=== PATIENT | female | born 1945 | race Two or more races ===

== ENCOUNTER 2016-10-01 20:33 | Inpatient (IN) | payer MEDICAID ==
[~2016-10-01] VITALS: Ht 167.6 cm; Wt 69.5 kg
[~2016-10-01 20:33] MED LIST: CALC650T4 PO; CARB200T6 PO; FAMO-136 PO; NIAC500T76 PO; OLAN5TAB2 PO; ROSU20 PO
[2016-10-01] MEDS ORDERED: FAMO20 PO (20:45)
[2016-10-01] MEDS ORDERED: DSS100 PO (20:45)
[2016-10-01] MEDS ORDERED: RISP1 PO (20:45)
[2016-10-01] MEDS ORDERED: OLAN10TA3 PO (20:45)
[2016-10-01] MEDS ORDERED: HYDR25 PO (20:45)
[2016-10-01] MEDS ORDERED: ARIP5TAB9 PO (20:45)
[2016-10-01] MEDS ORDERED: ASPI-556 PO (20:45)
[2016-10-01] MEDS ORDERED: MULT1CAP32 PO (20:45)
[2016-10-01] MEDS ORDERED: ROSU10 PO (20:45)
[2016-10-01] MEDS ORDERED: OMEG1CAP12 PO (20:45)
[2016-10-01] MEDS ORDERED: DIVA250T25 PO (20:45)
[2016-10-01 21:15] LABS: BASOPHILS % (AUTO) 0.1 % (0.0-2.0); EOSINOPHILS % (AUTO) 0.5 % (1.0-6.0); HEMATOCRIT 35.6 % (36-46); HEMOGLOBIN 11.2 g/dL (12.0-16.0); LYMPHOCYTES # (AUTO) 0.9 K/uL (1.0-4.8); LYMPHOCYTES % (AUTO) 8.4 % (22.0-44.0); MEAN CORPUSCULAR HGB CONC 31.5 G/dL (31.0-37.0); MEAN CORPUSCULAR VOLUME 89 fL (80-100); MONOCYTES # (AUTO) 0.5 K/uL (0.1-1.0); MONOCYTES % (AUTO) 4.3 % (2.0-9.0); NEUTROPHILS # (AUTO) 9.3 K/uL (1.8-7.7); NEUTROPHILS % (AUTO) 86.7 % (40.0-70.0); PLATELET COUNT (AUTO) 239 K/uL (150-450); RED BLOOD CELL COUNT(AUTO) 4.01 MIL/uL (4.00-5.20); RED CELL DISTRIBUTION WIDTH 16.6 % (11.5-14.5); WHITE BLOOD COUNT (AUTO) 10.7 K/uL (4.5-11.0)
[2016-10-01] MEDS ORDERED: SODIUM CHLORIDE 0.9% 1,000 ML IV ONE (21:15)
[2016-10-01 21:26] LABS: ALANINE AMINOTRANSFERASE 24 U/L (12-78); ALBUMIN 3.1 g/dL (3.4-5.0); ANION GAP 7 mmol/L (8-16); ASPARTATE AMINOTRANSFERASE 13 U/L (15-37); BILIRUBIN,TOTAL 0.2 mg/dL (0.1-1.0); CALCIUM, TOTAL 9.6 mg/dL (8.8-10.5); CARBON DIOXIDE 30 mmol/L (22-29); CHLORIDE 103 mmol/L (98-107); CREATININE 0.89 mg/dL (0.60-1.30); GLOMERULAR FILTR. RATE CALC > 60 mL/min (>60); SODIUM SERUM 140 mmol/L (136-145); TOTAL PROTEIN, SERUM 6.4 g/dL (6.4-8.2); UREA NITROGEN, BLOOD 22 mg/dL (7-18)
[2016-10-01 21:27] LABS: POTASSIUM 2.9 mmol/L (3.5-5.1)
[2016-10-01] MEDS: POTASSIUM CHLORIDE 20 MEQ ER TABLET PO ONE ×2 (21:40→21:46)
[2016-10-01 21:47] LABS: GLUCOSE,POINT OF CARE 96 MG/DL (70-110)
[2016-10-01] MEDS ORDERED: BARIUM SULFATE 0.1% SUSPENSION 450 ML BOTTLE PO ONE (22:15)
[2016-10-01] MEDS ORDERED: SODIUM CHLORIDE 0.9% 100 ML ONE (22:29)
[2016-10-01] MEDS ORDERED: IOVERSOL 350 MG/ML 100 ML VIAL ONE (22:29)
[2016-10-02] MEDS ORDERED: PEG 3350/NA SULF,BICARB,CL/KCL 4000 ML SOLUTION PO ONE (02:00)
[2016-10-02] MEDS ORDERED: ACETAMINOPHEN 325 MG TABLET PO PRN (02:45)
[2016-10-02] MEDS ORDERED: 0.9% SODIUM CHLORIDE 10 ML SYRINGE IVP PRN (02:45)
[2016-10-02] MEDS ORDERED: ONDANSETRON HCL 4 MG/2 ML VIAL IVP PRN ×2 (02:45→06:15)
[2016-10-02 03:12] VITALS: BP 102/74
[2016-10-02] MEDS ORDERED: CALC-776 PO (03:46)
[2016-10-02] MEDS ORDERED: POTASSIUM CHLORIDE 20 MEQ ER TABLET PO PRN (06:15)
[2016-10-02] MEDS: SODIUM CHLORIDE 0.45% 1,000 ML IV SCH (06:27)
[2016-10-02 07:10] VITALS: BP 120/69
[2016-10-02 07:33] LABS: ANION GAP 10 mmol/L (8-16); CALCIUM, TOTAL 9.5 mg/dL (8.8-10.5); CARBON DIOXIDE 27 mmol/L (22-29); CHLORIDE 102 mmol/L (98-107); CREATININE 0.86 mg/dL (0.60-1.30); GLOMERULAR FILTR. RATE CALC > 60 mL/min (>60); POTASSIUM 3.3 mmol/L (3.5-5.1); SODIUM SERUM 139 mmol/L (136-145); UREA NITROGEN, BLOOD 21 mg/dL (7-18)
[2016-10-02] MEDS: POTASSIUM CHLORIDE 20 MEQ ER TABLET PO PRN (08:27)
[2016-10-02] MEDS: DOCUSATE SODIUM 100 MG CAPSULE PO SCH ×2 (08:27→09:00)
[2016-10-02] MEDS: FAMOTIDINE 20 MG TABLET PO SCH (08:27)
[2016-10-02] MEDS: FISH OIL/OMEGA-3 FATTY ACIDS 500 MG CAPSULE PO SCH ×2 (08:28→20:19)
[2016-10-02] MEDS: RisperiDONE 1 MG TABLET PO SCH ×2 (08:28→20:20)
[2016-10-02] MEDS: ASPIRIN 81 MG EC TABLET PO SCH (08:28)
[2016-10-02] MEDS: MULTIVITAMINS, THERAPEUTIC TABLET PO SCH (08:28)
[2016-10-02] MEDS: CALCIUM OYSTER SHELL 250 MG-VIT D3 125 UNITS TABLET PO SCH ×2 (08:29→20:19)
[2016-10-02] MEDS: ARIPiprazole 5 MG TABLET PO SCH ×2 (08:29→20:19)
[2016-10-02] MEDS: DIVALPROEX SODIUM 250 MG DR TABLET PO SCH ×3 (08:29→20:19)
[2016-10-02] MEDS: HydrALAZINE HCL 25 MG TABLET PO SCH ×2 (08:29→20:19)
[2016-10-02 11:03] VITALS: BP 95/57
[2016-10-02 15:03] VITALS: BP 92/5
[2016-10-02 19:36] VITALS: BP 98/66
[2016-10-02] MEDS: ROSUVASTATIN CALCIUM 10 MG TABLET PO SCH (20:19)
[2016-10-02] MEDS: OLANZapine 10 MG TABLET PO SCH (20:20)
[2016-10-02 23:09] VITALS: BP 137/46
[2016-10-03] MEDS ORDERED: POTASSIUM CHL 10 MEQ/WATER 50 ML IV PRN
[2016-10-03] MEDS: POTASSIUM CHL 10 MEQ/WATER 50 ML IV PRN ×4 (00:15→04:26)
[2016-10-03 03:46] VITALS: BP 98/67
[2016-10-03] MEDS: MULTIVITAMINS, THERAPEUTIC TABLET PO SCH (06:30)
[2016-10-03 08:05] LABS: BASOPHILS % (AUTO) 0.6 % (0.0-2.0); EOSINOPHILS % (AUTO) 1.7 % (1.0-6.0); HEMATOCRIT 31.2 % (36-46); HEMOGLOBIN 9.9 g/dL (12.0-16.0); LYMPHOCYTES # (AUTO) 1.2 K/uL (1.0-4.8); LYMPHOCYTES % (AUTO) 15.3 % (22.0-44.0); MEAN CORPUSCULAR HGB CONC 31.6 G/dL (31.0-37.0); MEAN CORPUSCULAR VOLUME 89 fL (80-100); MONOCYTES # (AUTO) 0.3 K/uL (0.1-1.0); MONOCYTES % (AUTO) 4.2 % (2.0-9.0); NEUTROPHILS # (AUTO) 6.1 K/uL (1.8-7.7); NEUTROPHILS % (AUTO) 78.2 % (40.0-70.0); PLATELET COUNT (AUTO) 228 K/uL (150-450); RED BLOOD CELL COUNT(AUTO) 3.53 MIL/uL (4.00-5.20); RED CELL DISTRIBUTION WIDTH 16.4 % (11.5-14.5); WHITE BLOOD COUNT (AUTO) 7.8 K/uL (4.5-11.0)
[2016-10-03 08:17] VITALS: BP 99/52
[2016-10-03 08:27] LABS: ANION GAP 7 mmol/L (8-16); CALCIUM, TOTAL 8.8 mg/dL (8.8-10.5); CARBON DIOXIDE 24 mmol/L (22-29); CHLORIDE 109 mmol/L (98-107); CREATININE 0.72 mg/dL (0.60-1.30); GLOMERULAR FILTR. RATE CALC > 60 mL/min (>60); POTASSIUM 5.9 mmol/L (3.5-5.1); SODIUM SERUM 140 mmol/L (136-145); THYROID STIMULATING HORMONE 1.36 uIU/mL (0.36-3.74); UREA NITROGEN, BLOOD 22 mg/dL (7-18)
[2016-10-03] MEDS: DIVALPROEX SODIUM 250 MG DR TABLET PO SCH ×3 (09:25→21:20)
[2016-10-03] MEDS: DOCUSATE SODIUM 100 MG CAPSULE PO SCH (09:25)
[2016-10-03] MEDS: FAMOTIDINE 20 MG TABLET PO SCH (09:25)
[2016-10-03] MEDS: ASPIRIN 81 MG EC TABLET PO SCH (09:25)
[2016-10-03] MEDS: SODIUM CHLORIDE 0.45% 1,000 ML IV SCH ×3 (09:25→22:15)
[2016-10-03] MEDS: RisperiDONE 1 MG TABLET PO SCH ×2 (09:25→21:00)
[2016-10-03] MEDS: POLYETHYLENE GLYCOL 3350 17 GM PACKET PO SCH (09:25)
[2016-10-03] MEDS: CALCIUM OYSTER SHELL 250 MG-VIT D3 125 UNITS TABLET PO SCH ×2 (09:26→21:00)
[2016-10-03] MEDS: HydrALAZINE HCL 25 MG TABLET PO SCH ×2 (09:26→21:00)
[2016-10-03] MEDS: FISH OIL/OMEGA-3 FATTY ACIDS 500 MG CAPSULE PO SCH ×2 (09:26→21:00)
[2016-10-03 11:27] VITALS: BP 124/59
[2016-10-03] MEDS ORDERED: 0.9% SODIUM CHLORIDE 10 ML SYRINGE IVP PRN (12:00)
[2016-10-03] MEDS: ARIPiprazole 5 MG TABLET PO SCH ×2 (13:14→21:00)
[2016-10-03 15:20] VITALS: BP 98/54
[2016-10-03] MEDS ORDERED: PEG 3350/NA SULF,BICARB,CL/KCL 4000 ML SOLUTION PO ONE ×2 (16:30)
[2016-10-03 19:37] VITALS: BP 100/55
[2016-10-03] MEDS: OLANZapine 10 MG TABLET PO SCH (21:00)
[2016-10-03] MEDS: MUPIROCIN CALCIUM 2% 22 GM OINTMENT NASAL SCH (21:17)
[2016-10-03] MEDS: BISACODYL 10 MG RECTAL RECTAL SUPPOSITORY PR SCH (21:17)
[2016-10-03] MEDS: ROSUVASTATIN CALCIUM 10 MG TABLET PO SCH (21:20)
[2016-10-03 23:12] VITALS: BP 106/60
[2016-10-04 04:50] VITALS: BP 101/58
[2016-10-04 07:16] VITALS: BP 108/54
[2016-10-04] MEDS: SODIUM CHLORIDE 0.45% 1,000 ML IV SCH (08:15)
[2016-10-04 08:34] LABS: BASOPHILS % (AUTO) 1.2 % (0.0-2.0); HEMOGLOBIN 9.6 g/dL (12.0-16.0); LYMPHOCYTES # (AUTO) 1.7 K/uL (1.0-4.8); MEAN CORPUSCULAR VOLUME 88 fL (80-100); MONOCYTES # (AUTO) 0.4 K/uL (0.1-1.0); MONOCYTES % (AUTO) 5.3 % (2.0-9.0); NEUTROPHILS # (AUTO) 4.7 K/uL (1.8-7.7); NEUTROPHILS % (AUTO) 64.5 % (40.0-70.0); PLATELET COUNT (AUTO) 206 K/uL (150-450); RED BLOOD CELL COUNT(AUTO) 3.42 MIL/uL (4.00-5.20); RED CELL DISTRIBUTION WIDTH 16.6 % (11.5-14.5); WHITE BLOOD COUNT (AUTO) 7.2 K/uL (4.5-11.0)
[2016-10-04 08:49] LABS: ANION GAP 9 mmol/L (8-16); CALCIUM, TOTAL 8.3 mg/dL (8.8-10.5); CARBON DIOXIDE 21 mmol/L (22-29); CHLORIDE 109 mmol/L (98-107); GLOMERULAR FILTR. RATE CALC > 60 mL/min (>60); POTASSIUM 3.8 mmol/L (3.5-5.1); SODIUM SERUM 139 mmol/L (136-145); UREA NITROGEN, BLOOD 18 mg/dL (7-18)
[2016-10-04] MEDS: RisperiDONE 1 MG TABLET PO SCH ×2 (09:51→20:48)
[2016-10-04] MEDS: MULTIVITAMINS, THERAPEUTIC TABLET PO SCH (09:51)
[2016-10-04] MEDS: CALCIUM OYSTER SHELL 250 MG-VIT D3 125 UNITS TABLET PO SCH ×2 (09:51→20:48)
[2016-10-04] MEDS: ARIPiprazole 5 MG TABLET PO SCH ×2 (09:51→20:48)
[2016-10-04] MEDS: FISH OIL/OMEGA-3 FATTY ACIDS 500 MG CAPSULE PO SCH ×2 (09:51→20:48)
[2016-10-04] MEDS: HydrALAZINE HCL 25 MG TABLET PO SCH ×2 (09:52→20:48)
[2016-10-04] MEDS: DIVALPROEX SODIUM 250 MG DR TABLET PO SCH ×3 (09:52→20:48)
[2016-10-04] MEDS: DOCUSATE SODIUM 100 MG CAPSULE PO SCH (09:53)
[2016-10-04] MEDS: FAMOTIDINE 20 MG TABLET PO SCH (09:53)
[2016-10-04] MEDS: BISACODYL 10 MG RECTAL RECTAL SUPPOSITORY PR SCH ×2 (09:53→20:48)
[2016-10-04] MEDS: ASPIRIN 81 MG EC TABLET PO SCH (09:53)
[2016-10-04] MEDS: POLYETHYLENE GLYCOL 3350 17 GM PACKET PO SCH (09:54)
[2016-10-04] MEDS: MUPIROCIN CALCIUM 2% 22 GM OINTMENT NASAL SCH ×2 (09:54→21:00)
[2016-10-04 11:56] VITALS: BP 106/59
[2016-10-04 15:38] VITALS: BP 105/60
[2016-10-04 19:34] VITALS: BP 120/96
[2016-10-04] MEDS: OLANZapine 10 MG TABLET PO SCH (20:48)
[2016-10-04] MEDS: ROSUVASTATIN CALCIUM 10 MG TABLET PO SCH (21:00)
[2016-10-05 05:14] VITALS: BP 117/69
[2016-10-05] MEDS: SODIUM CHLORIDE 0.45% 1,000 ML IV SCH ×2 (05:32→21:27)
[2016-10-05] MEDS: MULTIVITAMINS, THERAPEUTIC TABLET PO SCH (05:32)
[2016-10-05 07:26] VITALS: BP 132/78
[2016-10-05] MEDS: FAMOTIDINE 20 MG TABLET PO SCH (09:19)
[2016-10-05] MEDS: MUPIROCIN CALCIUM 2% 22 GM OINTMENT NASAL SCH ×2 (09:19→21:11)
[2016-10-05] MEDS: HydrALAZINE HCL 25 MG TABLET PO SCH ×2 (09:19→21:11)
[2016-10-05] MEDS: FISH OIL/OMEGA-3 FATTY ACIDS 500 MG CAPSULE PO SCH ×2 (09:19→21:09)
[2016-10-05] MEDS: ASPIRIN 81 MG EC TABLET PO SCH (09:19)
[2016-10-05] MEDS: DOCUSATE SODIUM 100 MG CAPSULE PO SCH (09:19)
[2016-10-05] MEDS: CALCIUM OYSTER SHELL 250 MG-VIT D3 125 UNITS TABLET PO SCH ×2 (09:19→21:10)
[2016-10-05] MEDS: RisperiDONE 1 MG TABLET PO SCH ×2 (09:19→21:09)
[2016-10-05] MEDS: BISACODYL 10 MG RECTAL RECTAL SUPPOSITORY PR SCH ×2 (09:19→21:10)
[2016-10-05] MEDS: DIVALPROEX SODIUM 250 MG DR TABLET PO SCH ×3 (09:20→21:10)
[2016-10-05] MEDS: ARIPiprazole 5 MG TABLET PO SCH ×2 (09:20→22:41)
[2016-10-05] MEDS: POLYETHYLENE GLYCOL 3350 17 GM PACKET PO SCH (09:21)
[2016-10-05 11:22] VITALS: BP 100/66
[2016-10-05 16:22] VITALS: BP 131/92
[2016-10-05 19:42] VITALS: BP 118/70
[2016-10-05] MEDS: ROSUVASTATIN CALCIUM 10 MG TABLET PO SCH (21:09)
[2016-10-05] MEDS: OLANZapine 10 MG TABLET PO SCH (21:10)
[2016-10-05 23:11] VITALS: BP 131/78
[2016-10-06] MEDS: SODIUM CHLORIDE 0.45% 1,000 ML IV SCH ×2 (00:54→10:15)
[2016-10-06 05:25] VITALS: BP 117/76
[2016-10-06] MEDS: MULTIVITAMINS, THERAPEUTIC TABLET PO SCH (06:37)
[2016-10-06 07:00] VITALS: BP 158/96
[2016-10-06] MEDS: DOCUSATE SODIUM 100 MG CAPSULE PO SCH (08:33)
[2016-10-06] MEDS: BISACODYL 10 MG RECTAL RECTAL SUPPOSITORY PR SCH ×2 (08:33→20:48)
[2016-10-06] MEDS: POLYETHYLENE GLYCOL 3350 17 GM PACKET PO SCH (08:33)
[2016-10-06] MEDS: FAMOTIDINE 20 MG TABLET PO SCH (08:33)
[2016-10-06] MEDS: ASPIRIN 81 MG EC TABLET PO SCH (08:33)
[2016-10-06] MEDS: RisperiDONE 1 MG TABLET PO SCH ×2 (08:33→20:50)
[2016-10-06] MEDS: FISH OIL/OMEGA-3 FATTY ACIDS 500 MG CAPSULE PO SCH ×2 (08:34→20:48)
[2016-10-06] MEDS: CALCIUM OYSTER SHELL 250 MG-VIT D3 125 UNITS TABLET PO SCH ×2 (08:34→22:24)
[2016-10-06] MEDS: MUPIROCIN CALCIUM 2% 22 GM OINTMENT NASAL SCH ×2 (08:37→20:52)
[2016-10-06] MEDS: ARIPiprazole 5 MG TABLET PO SCH ×2 (08:41→22:24)
[2016-10-06] MEDS: HydrALAZINE HCL 25 MG TABLET PO SCH ×2 (08:41→23:53)
[2016-10-06] MEDS: DIVALPROEX SODIUM 250 MG DR TABLET PO SCH ×3 (17:46→20:49)
[2016-10-06] MEDS: LACTULOSE 20 GM/30 ML SOLUTION UDCUP PO SCH ×2 (17:46→20:48)
[2016-10-06 20:20] VITALS: BP 105/76
[2016-10-06] MEDS: OLANZapine 10 MG TABLET PO SCH (20:48)
[2016-10-06] MEDS: ROSUVASTATIN CALCIUM 10 MG TABLET PO SCH (20:49)
[2016-10-06 23:48] VITALS: BP 130/79
[2016-10-07] MEDS: SODIUM CHLORIDE 0.45% 1,000 ML IV SCH ×2 (03:26→20:50)
[2016-10-07 05:37] VITALS: BP 132/62
[2016-10-07] MEDS: MULTIVITAMINS, THERAPEUTIC TABLET PO SCH (06:52)
[2016-10-07 07:51] VITALS: BP 150/86
[2016-10-07 08:33] LABS: BASOPHILS % (AUTO) 0.3 % (0.0-2.0); EOSINOPHILS % (AUTO) 3.9 % (1.0-6.0); HEMATOCRIT 30.3 % (36-46); HEMOGLOBIN 9.7 g/dL (12.0-16.0); LYMPHOCYTES # (AUTO) 1.2 K/uL (1.0-4.8); LYMPHOCYTES % (AUTO) 18.5 % (22.0-44.0); MEAN CORPUSCULAR HEMOGLOBIN 27.9 pg (26.0-34.0); MEAN CORPUSCULAR HGB CONC 32.1 G/dL (31.0-37.0); MEAN CORPUSCULAR VOLUME 87 fL (80-100); MONOCYTES # (AUTO) 0.3 K/uL (0.1-1.0); MONOCYTES % (AUTO) 5.3 % (2.0-9.0); NEUTROPHILS # (AUTO) 4.5 K/uL (1.8-7.7); PLATELET COUNT (AUTO) 208 K/uL (150-450); RED BLOOD CELL COUNT(AUTO) 3.49 MIL/uL (4.00-5.20); RED CELL DISTRIBUTION WIDTH 16.4 % (11.5-14.5); WHITE BLOOD COUNT (AUTO) 6.2 K/uL (4.5-11.0)
[2016-10-07 08:37] LABS: ANION GAP 7 mmol/L (8-16); CARBON DIOXIDE 30 mmol/L (22-29); CHLORIDE 106 mmol/L (98-107); CREATININE 0.49 mg/dL (0.60-1.30); GLOMERULAR FILTR. RATE CALC > 60 mL/min (>60); SODIUM SERUM 143 mmol/L (136-145); UREA NITROGEN, BLOOD 6 mg/dL (7-18)
[2016-10-07] MEDS: MUPIROCIN CALCIUM 2% 22 GM OINTMENT NASAL SCH ×2 (09:00→20:51)
[2016-10-07] MEDS: DOCUSATE SODIUM 100 MG CAPSULE PO SCH (09:29)
[2016-10-07] MEDS: POLYETHYLENE GLYCOL 3350 17 GM PACKET PO SCH (09:29)
[2016-10-07] MEDS: LACTULOSE 20 GM/30 ML SOLUTION UDCUP PO SCH ×2 (09:29→20:49)
[2016-10-07] MEDS: CALCIUM OYSTER SHELL 250 MG-VIT D3 125 UNITS TABLET PO SCH ×2 (09:29→20:49)
[2016-10-07] MEDS: BISACODYL 10 MG RECTAL RECTAL SUPPOSITORY PR SCH ×2 (09:30→20:49)
[2016-10-07] MEDS: ASPIRIN 81 MG EC TABLET PO SCH (09:30)
[2016-10-07] MEDS: DIVALPROEX SODIUM 250 MG DR TABLET PO SCH ×3 (09:30→20:50)
[2016-10-07] MEDS: FISH OIL/OMEGA-3 FATTY ACIDS 500 MG CAPSULE PO SCH ×2 (09:30→20:50)
[2016-10-07] MEDS: FAMOTIDINE 20 MG TABLET PO SCH (09:30)
[2016-10-07] MEDS: RisperiDONE 1 MG TABLET PO SCH ×2 (09:31→20:50)
[2016-10-07] MEDS: ARIPiprazole 5 MG TABLET PO SCH ×2 (09:32→20:50)
[2016-10-07] MEDS: HydrALAZINE HCL 25 MG TABLET PO SCH ×2 (09:32→20:50)
[2016-10-07 11:59] VITALS: BP 139/85
[2016-10-07] MEDS: POTASSIUM CHLORIDE 20 MEQ ER TABLET PO PRN ×2 (13:45→20:49)
[2016-10-07] MEDS: HYDROCODONE/ACETAMINOPHEN 5-325 MG TABLET PO PRN (14:41)
[2016-10-07 16:00] VITALS: BP 147/68
[2016-10-07 20:42] VITALS: BP 144/65
[2016-10-07] MEDS: OLANZapine 10 MG TABLET PO SCH (20:49)
[2016-10-07] MEDS: ROSUVASTATIN CALCIUM 10 MG TABLET PO SCH (20:50)
[2016-10-07 23:45] VITALS: BP 146/72
[2016-10-08] MEDS: SODIUM CHLORIDE 0.45% 1,000 ML IV SCH ×3 (02:15→23:45)
[2016-10-08] MEDS: MULTIVITAMINS, THERAPEUTIC TABLET PO SCH (06:10)
[2016-10-08] MEDS: HydrALAZINE HCL 25 MG TABLET PO SCH ×2 (08:01→20:26)
[2016-10-08] MEDS: DOCUSATE SODIUM 100 MG CAPSULE PO SCH (08:02)
[2016-10-08] MEDS: FAMOTIDINE 20 MG TABLET PO SCH (08:02)
[2016-10-08] MEDS: DIVALPROEX SODIUM 250 MG DR TABLET PO SCH ×3 (08:02→20:27)
[2016-10-08] MEDS: FISH OIL/OMEGA-3 FATTY ACIDS 500 MG CAPSULE PO SCH ×2 (08:02→20:27)
[2016-10-08] MEDS: ASPIRIN 81 MG EC TABLET PO SCH (08:02)
[2016-10-08] MEDS: BISACODYL 10 MG RECTAL RECTAL SUPPOSITORY PR SCH ×2 (08:02→23:44)
[2016-10-08] MEDS: RisperiDONE 1 MG TABLET PO SCH ×2 (08:02→20:27)
[2016-10-08] MEDS: POLYETHYLENE GLYCOL 3350 17 GM PACKET PO SCH (08:02)
[2016-10-08] MEDS: CALCIUM OYSTER SHELL 250 MG-VIT D3 125 UNITS TABLET PO SCH ×2 (08:02→20:27)
[2016-10-08] MEDS: LACTULOSE 20 GM/30 ML SOLUTION UDCUP PO SCH ×2 (08:02→20:26)
[2016-10-08 08:18] VITALS: BP 148/76
[2016-10-08] MEDS: MUPIROCIN CALCIUM 2% 22 GM OINTMENT NASAL SCH (08:38)
[2016-10-08] MEDS: ARIPiprazole 5 MG TABLET PO SCH ×2 (08:38→20:26)
[2016-10-08] MEDS ORDERED: DOCUSATE SODIUM/BENZOCAINE 283-20MG/5 ML MINI-ENEMA PR ONE (09:45)
[2016-10-08] MEDS ORDERED: SENNA 218 MG/5 ML SYRUP ORAL.SYG PO ONE (09:45)
[2016-10-08 11:12] VITALS: BP 115/76
[2016-10-08] MEDS ORDERED: MAGNESIUM SULFATE 454 GM BOX PR ONE (14:30)
[2016-10-08] MEDS ORDERED: GLYCERIN PR ONE (14:30)
[2016-10-08 16:29] VITALS: BP 131/65
[2016-10-08] MEDS: ROSUVASTATIN CALCIUM 10 MG TABLET PO SCH (20:26)
[2016-10-08] MEDS: OLANZapine 10 MG TABLET PO SCH (20:28)
[2016-10-08 20:29] VITALS: BP 119/60
[2016-10-08 23:24] VITALS: BP 131/69
[2016-10-09] MEDS: MUPIROCIN CALCIUM 2% 22 GM OINTMENT NASAL SCH ×3 (00:11→21:00)
[2016-10-09] MEDS ORDERED: MAGNESIUM SULFATE 454 GM BOX TP PRN ×2 (03:15→09:00)
[2016-10-09] MEDS ORDERED: GLYCERIN PR PRN ×2 (05:00)
[2016-10-09] MEDS ORDERED: MAGNESIUM SULFATE 454 GM BOX PR PRN (06:45)
[2016-10-09 07:42] VITALS: BP 99/59
[2016-10-09] MEDS: POLYETHYLENE GLYCOL 3350 17 GM PACKET PO SCH (09:11)
[2016-10-09] MEDS: ASPIRIN 81 MG EC TABLET PO SCH (09:12)
[2016-10-09] MEDS: DIVALPROEX SODIUM 250 MG DR TABLET PO SCH ×3 (09:12→21:48)
[2016-10-09] MEDS: LACTULOSE 20 GM/30 ML SOLUTION UDCUP PO SCH ×2 (09:12→21:48)
[2016-10-09] MEDS: DOCUSATE SODIUM 100 MG CAPSULE PO SCH (09:12)
[2016-10-09] MEDS: HYDROCODONE/ACETAMINOPHEN 5-325 MG TABLET PO PRN ×2 (09:12→16:08)
[2016-10-09] MEDS: CALCIUM OYSTER SHELL 250 MG-VIT D3 125 UNITS TABLET PO SCH ×2 (09:13→21:48)
[2016-10-09] MEDS: FISH OIL/OMEGA-3 FATTY ACIDS 500 MG CAPSULE PO SCH ×2 (09:13→21:48)
[2016-10-09] MEDS: MULTIVITAMINS, THERAPEUTIC TABLET PO SCH (09:13)
[2016-10-09] MEDS: RisperiDONE 1 MG TABLET PO SCH ×2 (09:13→21:48)
[2016-10-09] MEDS: FAMOTIDINE 20 MG TABLET PO SCH (09:13)
[2016-10-09] MEDS: HydrALAZINE HCL 25 MG TABLET PO SCH ×2 (09:13→21:49)
[2016-10-09] MEDS: BISACODYL 10 MG RECTAL RECTAL SUPPOSITORY PR SCH ×2 (09:14→21:51)
[2016-10-09] MEDS: ARIPiprazole 5 MG TABLET PO SCH ×2 (09:14→21:48)
[2016-10-09 11:31] VITALS: BP 102/58
[2016-10-09 16:05] VITALS: BP 102/58
[2016-10-09] MEDS: SODIUM CHLORIDE 0.45% 1,000 ML IV SCH ×2 (18:15→18:20)
[2016-10-09 20:24] VITALS: BP 92/50
[2016-10-09] MEDS: OLANZapine 10 MG TABLET PO SCH (21:48)
[2016-10-09] MEDS: ROSUVASTATIN CALCIUM 10 MG TABLET PO SCH (21:48)
[2016-10-09 23:07] VITALS: BP 90/51
[2016-10-10 04:35] VITALS: BP 102/60
[2016-10-10] MEDS: SODIUM CHLORIDE 0.45% 1,000 ML IV SCH (04:41)
[2016-10-10] MEDS: MULTIVITAMINS, THERAPEUTIC TABLET PO SCH (06:01)
[2016-10-10 06:43] LABS: BASOPHILS % (AUTO) 0.8 % (0.0-2.0); EOSINOPHILS % (AUTO) 8.8 % (1.0-6.0); HEMATOCRIT 29.3 % (36-46); LYMPHOCYTES # (AUTO) 1.6 K/uL (1.0-4.8); LYMPHOCYTES % (AUTO) 28.2 % (22.0-44.0); MEAN CORPUSCULAR HEMOGLOBIN 27.3 pg (26.0-34.0); MEAN CORPUSCULAR HGB CONC 30.8 G/dL (31.0-37.0); MEAN CORPUSCULAR VOLUME 89 fL (80-100); MONOCYTES # (AUTO) 0.4 K/uL (0.1-1.0); MONOCYTES % (AUTO) 6.6 % (2.0-9.0); NEUTROPHILS # (AUTO) 3.1 K/uL (1.8-7.7); NEUTROPHILS % (AUTO) 55.6 % (40.0-70.0); PLATELET COUNT (AUTO) 217 K/uL (150-450); RED CELL DISTRIBUTION WIDTH 16.9 % (11.5-14.5); WHITE BLOOD COUNT (AUTO) 5.5 K/uL (4.5-11.0)
[2016-10-10 07:25] LABS: ALANINE AMINOTRANSFERASE 20 U/L (12-78); ALBUMIN 2.3 g/dL (3.4-5.0); ANION GAP 4 mmol/L (8-16); ASPARTATE AMINOTRANSFERASE 10 U/L (15-37); BILIRUBIN,TOTAL 0.2 mg/dL (0.1-1.0); CALCIUM, TOTAL 8.8 mg/dL (8.8-10.5); CARBON DIOXIDE 30 mmol/L (22-29); CHLORIDE 107 mmol/L (98-107); CREATININE 0.52 mg/dL (0.60-1.30); GLOMERULAR FILTR. RATE CALC > 60 mL/min (>60); POTASSIUM 3.5 mmol/L (3.5-5.1); SODIUM SERUM 141 mmol/L (136-145); TOTAL PROTEIN, SERUM 4.8 g/dL (6.4-8.2); UREA NITROGEN, BLOOD 15 mg/dL (7-18)
[2016-10-10] MEDS: ARIPiprazole 5 MG TABLET PO SCH (07:51)
[2016-10-10] MEDS: FISH OIL/OMEGA-3 FATTY ACIDS 500 MG CAPSULE PO SCH (07:51)
[2016-10-10] MEDS: CALCIUM OYSTER SHELL 250 MG-VIT D3 125 UNITS TABLET PO SCH (07:51)
[2016-10-10] MEDS: DOCUSATE SODIUM 100 MG CAPSULE PO SCH (07:51)
[2016-10-10] MEDS: POLYETHYLENE GLYCOL 3350 17 GM PACKET PO SCH (07:51)
[2016-10-10] MEDS: HydrALAZINE HCL 25 MG TABLET PO SCH (07:51)
[2016-10-10] MEDS: RisperiDONE 1 MG TABLET PO SCH (07:51)
[2016-10-10] MEDS: FAMOTIDINE 20 MG TABLET PO SCH (07:51)
[2016-10-10] MEDS: DIVALPROEX SODIUM 250 MG DR TABLET PO SCH (07:52)
[2016-10-10] MEDS: ASPIRIN 81 MG EC TABLET PO SCH (07:52)
[2016-10-10] MEDS: LACTULOSE 20 GM/30 ML SOLUTION UDCUP PO SCH (07:52)
[2016-10-10] MEDS: BISACODYL 10 MG RECTAL RECTAL SUPPOSITORY PR SCH (07:52)
[2016-10-10 09:11] LABS: RBC MORPHOLOGY COMMENT NORMAL RBC MORPH
[2016-10-10] MEDS ORDERED: BISA10S PR (15:05)
[2016-10-10] MEDS ORDERED: DSS100 PO (15:06)
[2016-10-10] MEDS ORDERED: POLY238P2 PO (15:06)
== END 2016-10-10 16:05 | disposition home or self-care (01) | DRG 247 ==
LOC: EMS 20:37 → 6N 10-02 01:50 → MERGE 10-02 01:50 → 6N 10-07 17:29
PROVIDERS: ADMIT Family Medicine; ATTEND Family Medicine
DX: K56.41 Fecal impaction (principal); I10 Essential (primary) hypertension; F31.9 Bipolar disorder, unspecified; K21.9 Gastro-esophageal reflux disease without esophagitis; I49.9 Cardiac arrhythmia, unspecified; M81.0 Age-related osteoporosis without current pathological fracture; E86.0 Dehydration; Z86.14 Personal history of Methicillin resistant Staphylococcus aureus infection; Z79.82 Long term (current) use of aspirin; Z79.899 Other long term (current) drug therapy; Z90.710 Acquired absence of both cervix and uterus; Z98.890 Other specified postprocedural states
CPT/HCPCS: 74000; 74010; 74177; 82948; 82962; 83735; 84132; 84443; 87081; 93005; 96360; 96361; 99285; J3480; J7030; J7050

== ENCOUNTER 2016-11-07 08:41 | Inpatient (IN) | payer MEDICAID ==
[~2016-11-07] VITALS: Ht 160 cm; Wt 61.5 kg
[~2016-11-07 08:41] MED LIST changes: +ARIP5TAB9 PO; +ASPI-556 PO; +BISA10S PR; +CALC-776 PO; +DIVA250T25 PO; +DSS100 PO; +FAMO20 PO; +HYDR25 PO; +MULT1CAP32 PO; +OLAN10TA3 PO; +OMEG1CAP12 PO; +POLY238P2 PO; +RISP1 PO; +ROSU10 PO
[2016-11-07] MEDS ORDERED: DSS100 PO (09:01)
[2016-11-07] MEDS ORDERED: OMEG-12 PO (09:01)
[2016-11-07] MEDS ORDERED: ASPI-1093 PO (09:01)
[2016-11-07] MEDS ORDERED: DIVA250T25 PO (09:01)
[2016-11-07] MEDS ORDERED: FAMO20 PO (09:01)
[2016-11-07] MEDS ORDERED: RISP1 PO (09:02)
[2016-11-07] MEDS ORDERED: ACET325T47 PO (09:02)
[2016-11-07] MEDS ORDERED: HYDR25 PO (09:02)
[2016-11-07] MEDS ORDERED: MULT-723 PO (09:02)
[2016-11-07] MEDS ORDERED: OLAN7.5T2 PO (09:02)
[2016-11-07] MEDS ORDERED: ESOM20CA31 PO (09:02)
[2016-11-07] MEDS ORDERED: LACT30L PO (09:02)
[2016-11-07] MEDS ORDERED: CALC-776 PO (09:02)
[2016-11-07] MEDS ORDERED: VITAD1000 PO (09:02)
[2016-11-07 09:07] LABS: GLUCOSE,POINT OF CARE 108 MG/DL (70-110)
[2016-11-07 09:40] LABS: BASOPHILS % (AUTO) 0.5 % (0.0-2.0); EOSINOPHILS % (AUTO) 0.9 % (1.0-6.0); HEMATOCRIT 34.6 % (36-46); HEMOGLOBIN 10.8 g/dL (12.0-16.0); LYMPHOCYTES # (AUTO) 1.5 K/uL (1.0-4.8); LYMPHOCYTES % (AUTO) 12.3 % (22.0-44.0); MEAN CORPUSCULAR HEMOGLOBIN 27.2 pg (26.0-34.0); MEAN CORPUSCULAR HGB CONC 31.1 G/dL (31.0-37.0); MEAN CORPUSCULAR VOLUME 88 fL (80-100); MONOCYTES # (AUTO) 0.6 K/uL (0.1-1.0); MONOCYTES % (AUTO) 4.7 % (2.0-9.0); NEUTROPHILS # (AUTO) 9.9 K/uL (1.8-7.7); NEUTROPHILS % (AUTO) 81.6 % (40.0-70.0); PLATELET COUNT (AUTO) 178 K/uL (150-450); RED BLOOD CELL COUNT(AUTO) 3.95 MIL/uL (4.00-5.20); RED CELL DISTRIBUTION WIDTH 17.7 % (11.5-14.5); WHITE BLOOD COUNT (AUTO) 12.1 K/uL (4.5-11.0)
[2016-11-07 09:50] LABS: ANION GAP 9 mmol/L (8-16); CALCIUM, TOTAL 9.3 mg/dL (8.8-10.5); CARBON DIOXIDE 32 mmol/L (22-29); CHLORIDE 105 mmol/L (98-107); CREATININE 0.62 mg/dL (0.60-1.30); GLOMERULAR FILTR. RATE CALC > 60 mL/min (>60); POTASSIUM 3.7 mmol/L (3.5-5.1); SODIUM SERUM 146 mmol/L (136-145); UREA NITROGEN, BLOOD 17 mg/dL (7-18)
[2016-11-07 09:57] LABS: ALANINE AMINOTRANSFERASE 37 U/L (12-78); ALBUMIN 3.2 g/dL (3.4-5.0); ASPARTATE AMINOTRANSFERASE 20 U/L (15-37); BILIRUBIN,TOTAL 0.3 mg/dL (0.1-1.0); TOTAL PROTEIN, SERUM 6.8 g/dL (6.4-8.2)
[2016-11-07] MEDS ORDERED: IPRATROPIUM BROMIDE 0.5 MG/2.5 ML NEB SOLUTION NEB ONE (10:00)
[2016-11-07] MEDS ORDERED: ALBUTEROL SULFATE 2.5 MG/0.5 ML NEB SOLUTION NEB ONE (10:00)
[2016-11-07 10:19] LABS: B-TYPE NATRIURETIC PEPTIDE 16 pg/mL (0-100)
[2016-11-07] MEDS ORDERED: ENOXAPARIN SODIUM 60 MG/0.6 ML PF SYRINGE SQ ONE (10:30)
[2016-11-07] MEDS ORDERED: MethylPREDNISolone SOD SUCC 125 MG/2 ML VIAL IVP ONE (10:30)
[2016-11-07] MEDS ORDERED: IOVERSOL 350 MG/ML 100 ML VIAL ONE (10:36)
[2016-11-07] MEDS ORDERED: SODIUM CHLORIDE 0.9% 100 ML ONE (10:36)
[2016-11-07 10:41] LABS: APPEARANCE,URINE CLOUDY (CLEAR); GLUCOSE, URINE (UA) NEGATIVE (NEGATIVE); KETONES,URINE 40 mg/dL (NEGATIVE); LEUKOCYTE ESTERASE ,URINE LARGE (NEGATIVE); OCCULT BLOOD,URINE TRACE (NEGATIVE); PROTEIN,URINE TRACE (NEGATIVE)
[2016-11-07 10:44] LABS: ADD UA MICROSCOPIC YES
[2016-11-07] MEDS ORDERED: ENOXAPARIN SODIUM 80 MG/0.8 ML PF SYRINGE SQ ONE (10:45)
[2016-11-07 10:46] LABS: INFLUENZA TYPE B NEGATIVE FOR TYPE B (NEGATIVE); WBC,URINE >100 /HPF (0-5)
[2016-11-07 10:47] LABS: ABG BASE EXCESS 4.9 mmol/L (-2.0-3.0); ABG HCO3 28.1 mmol/L (22.0-26.0); ABG OXYHEMOGLOBIN 90.8 % (94.0-100.0); ABG PCO2 50 mmHg (35-45); ABG PH 7.393 (7.35-7.450); ALLEN TEST, BLOOD GAS Positive; TEMPERATURE, FAHRENHEIT, BG 99.5 FAHREN (96.0-98.6)
[2016-11-07 10:49] LABS: SQUAMOUS EPITHELIAL CELL,UR Few /LPF (None Seen)
[2016-11-07] MEDS ORDERED: LORazepam 2 MG/ML VIAL IVP ONE (11:00)
[2016-11-07] MEDS ORDERED: PIPERACILLIN/TAZO 3.375 GM/D5W 50 ML IV ONE (13:15)
[2016-11-07] MEDS ORDERED: ZOLPIDEM TARTRATE 5 MG TABLET PO PRN (18:15)
[2016-11-07] MEDS ORDERED: OxyCODONE HCL/ACETAMINOPHEN 5-325 MG TABLET PO PRN (18:15)
[2016-11-07 18:24] VITALS: BP 110/60
[2016-11-07 19:30] VITALS: BP 98/52
[2016-11-07] MEDS ORDERED: SODIUM CHLORIDE 0.9% 50 ML ONE (20:33)
[2016-11-07] MEDS: PIPERACILLIN/TAZO 3.375 GM/D5W 50 ML IV SCH (20:35)
[2016-11-07] MEDS ORDERED: BISA10SU22 PR (21:37)
[2016-11-07] MEDS ORDERED: FE PR (21:37)
[2016-11-07] MEDS: POTASSIUM CHL 20 MEQ/D5-0.45NS 1,000 ML IV SCH (22:40)
[2016-11-07] MEDS: HEPARIN SODIUM,PORCINE 5,000 UNITS/ML VIAL SQ SCH (23:52)
[2016-11-08] VITALS (7 sets, daily range): BP systolic 100–149; BP diastolic 50–83
[2016-11-08] MEDS: PIPERACILLIN/TAZO 3.375 GM/D5W 50 ML IV SCH ×4 (01:17→19:28)
[2016-11-08 06:12] LABS: BASOPHILS # (AUTO) 0.01 K/uL (0.00-0.20); BASOPHILS % (AUTO) 0.2 % (0.0-2.0); EOSINOPHILS % (AUTO) 0.06 % (1.0-6.0); HEMATOCRIT 29.2 % (36-46); HEMOGLOBIN 9.5 g/dL (12.0-16.0); LYMPHOCYTES # (AUTO) 0.6 K/uL (1.0-4.8); LYMPHOCYTES % (AUTO) 10.4 % (22.0-44.0); MEAN CORPUSCULAR HEMOGLOBIN 28.1 pg (26.0-34.0); MEAN CORPUSCULAR HGB CONC 32.6 G/dL (31.0-37.0); MEAN CORPUSCULAR VOLUME 86 fL (80-100); MONOCYTES # (AUTO) 0.4 K/uL (0.1-1.0); MONOCYTES % (AUTO) 7.2 % (2.0-9.0); NEUTROPHILS # (AUTO) 4.8 K/uL (1.8-7.7); NEUTROPHILS % (AUTO) 82.2 % (40.0-70.0); PLATELET COUNT (AUTO) 162 K/uL (150-450); RED BLOOD CELL COUNT(AUTO) 3.38 MIL/uL (4.00-5.20); RED CELL DISTRIBUTION WIDTH 17.8 % (11.5-14.5); WHITE BLOOD COUNT (AUTO) 5.9 K/uL (4.5-11.0)
[2016-11-08 06:46] LABS: RBC MORPHOLOGY COMMENT ABNORMAL RBC MORPH
[2016-11-08 07:08] LABS: ALANINE AMINOTRANSFERASE 24 U/L (12-78); ALBUMIN 2.6 g/dL (3.4-5.0); ANION GAP 3 mmol/L (8-16); ASPARTATE AMINOTRANSFERASE 8 U/L (15-37); BILIRUBIN,TOTAL 0.2 mg/dL (0.1-1.0); CALCIUM, TOTAL 8.7 mg/dL (8.8-10.5); CARBON DIOXIDE 33 mmol/L (22-29); CHLORIDE 107 mmol/L (98-107); CREATININE 0.61 mg/dL (0.60-1.30); GLOMERULAR FILTR. RATE CALC > 60 mL/min (>60); POTASSIUM 3.8 mmol/L (3.5-5.1); SODIUM SERUM 143 mmol/L (136-145); TOTAL PROTEIN, SERUM 5.7 g/dL (6.4-8.2); UREA NITROGEN, BLOOD 19 mg/dL (7-18)
[2016-11-08] MEDS: RisperiDONE 1 MG TABLET PO SCH ×2 (08:25→20:40)
[2016-11-08] MEDS: HydrALAZINE HCL 25 MG TABLET PO SCH ×2 (08:25→20:40)
[2016-11-08] MEDS: ASPIRIN 81 MG EC TABLET PO SCH (08:25)
[2016-11-08] MEDS: PANTOPRAZOLE SODIUM 40 MG DR TABLET PO SCH (08:25)
[2016-11-08] MEDS: DIVALPROEX SODIUM 250 MG DR TABLET PO SCH ×3 (08:25→20:40)
[2016-11-08] MEDS: HEPARIN SODIUM,PORCINE 5,000 UNITS/ML VIAL SQ SCH ×3 (08:26→23:09)
[2016-11-08] MEDS: DOCUSATE SODIUM 100 MG CAPSULE PO SCH (08:26)
[2016-11-08] MEDS: CHOLECALCIFEROL (VIT D3) 1,000 UNITS TABLET PO SCH (08:26)
[2016-11-08] MEDS: LACTULOSE 20 GM/30 ML SOLUTION UDCUP PO SCH ×3 (08:44→20:40)
[2016-11-08] MEDS: ACETAMINOPHEN 325 MG TABLET PO PRN (11:26)
[2016-11-08] MEDS: POTASSIUM CHL 20 MEQ/D5-0.45NS 1,000 ML IV SCH (12:47)
[2016-11-08] MEDS ORDERED: ROSU10 PO (14:53)
[2016-11-08] MEDS ORDERED: SODIUM CHLORIDE 0.9% 50 ML ONE (20:13)
[2016-11-08] MEDS: OLANZapine 7.5 MG TABLET PO SCH (20:40)
[2016-11-08] MEDS: ROSUVASTATIN CALCIUM 10 MG TABLET PO SCH (20:40)
[2016-11-09] VITALS (7 sets, daily range): BP systolic 107–153; BP diastolic 60–97
[2016-11-09] MEDS: PIPERACILLIN/TAZO 3.375 GM/D5W 50 ML IV SCH ×4 (01:25→20:49)
[2016-11-09] MEDS: POTASSIUM CHL 20 MEQ/D5-0.45NS 1,000 ML IV SCH ×2 (04:45→17:50)
[2016-11-09 06:42] LABS: BASOPHILS % (AUTO) 0.7 % (0.0-2.0); EOSINOPHILS % (AUTO) 2.1 % (1.0-6.0); HEMATOCRIT 32.5 % (36-46); HEMOGLOBIN 10.4 g/dL (12.0-16.0); LYMPHOCYTES # (AUTO) 0.6 K/uL (1.0-4.8); LYMPHOCYTES % (AUTO) 9.7 % (22.0-44.0); MEAN CORPUSCULAR HEMOGLOBIN 27.8 pg (26.0-34.0); MEAN CORPUSCULAR HGB CONC 31.9 G/dL (31.0-37.0); MEAN CORPUSCULAR VOLUME 87 fL (80-100); MONOCYTES # (AUTO) 0.3 K/uL (0.1-1.0); MONOCYTES % (AUTO) 4.9 % (2.0-9.0); NEUTROPHILS # (AUTO) 4.9 K/uL (1.8-7.7); NEUTROPHILS % (AUTO) 82.6 % (40.0-70.0); PLATELET COUNT (AUTO) 167 K/uL (150-450); RED BLOOD CELL COUNT(AUTO) 3.73 MIL/uL (4.00-5.20); RED CELL DISTRIBUTION WIDTH 17.5 % (11.5-14.5); WHITE BLOOD COUNT (AUTO) 5.9 K/uL (4.5-11.0)
[2016-11-09 07:17] LABS: ALANINE AMINOTRANSFERASE 26 U/L (12-78); ALBUMIN 2.7 g/dL (3.4-5.0); ANION GAP 6 mmol/L (8-16); ASPARTATE AMINOTRANSFERASE 13 U/L (15-37); BILIRUBIN,TOTAL 0.3 mg/dL (0.1-1.0); CALCIUM, TOTAL 8.6 mg/dL (8.8-10.5); CARBON DIOXIDE 31 mmol/L (22-29); CHLORIDE 105 mmol/L (98-107); CREATININE 0.62 mg/dL (0.60-1.30); GLOMERULAR FILTR. RATE CALC > 60 mL/min (>60); POTASSIUM 3.8 mmol/L (3.5-5.1); SODIUM SERUM 142 mmol/L (136-145); TOTAL PROTEIN, SERUM 6.4 g/dL (6.4-8.2); UREA NITROGEN, BLOOD 10 mg/dL (7-18)
[2016-11-09] MEDS: HEPARIN SODIUM,PORCINE 5,000 UNITS/ML VIAL SQ SCH ×2 (07:52→17:01)
[2016-11-09] MEDS: LACTULOSE 20 GM/30 ML SOLUTION UDCUP PO SCH ×3 (08:36→20:52)
[2016-11-09] MEDS: HydrALAZINE HCL 25 MG TABLET PO SCH ×2 (08:37→20:52)
[2016-11-09] MEDS: DIVALPROEX SODIUM 250 MG DR TABLET PO SCH ×3 (08:37→20:52)
[2016-11-09] MEDS: DOCUSATE SODIUM 100 MG CAPSULE PO SCH (08:37)
[2016-11-09] MEDS: CHOLECALCIFEROL (VIT D3) 1,000 UNITS TABLET PO SCH (08:37)
[2016-11-09] MEDS: RisperiDONE 1 MG TABLET PO SCH ×2 (08:37→20:52)
[2016-11-09] MEDS: PANTOPRAZOLE SODIUM 40 MG DR TABLET PO SCH (08:37)
[2016-11-09] MEDS: ASPIRIN 81 MG EC TABLET PO SCH (08:37)
[2016-11-09] MEDS: GuaiFENesin/D-METHORPHAN [SUGAR-FREE] 200-20MG/10 ML SYRUP UDCUP PO PRN ×2 (08:45→13:59)
[2016-11-09 12:46] LABS: RBC MORPHOLOGY COMMENT ABNORMAL RBC MORPH
[2016-11-09] MEDS: ACETAMINOPHEN 325 MG TABLET PO PRN (13:56)
[2016-11-09] MEDS: ROSUVASTATIN CALCIUM 10 MG TABLET PO SCH (20:52)
[2016-11-09] MEDS: OLANZapine 7.5 MG TABLET PO SCH (20:52)
[2016-11-10] MEDS: GuaiFENesin/D-METHORPHAN [SUGAR-FREE] 200-20MG/10 ML SYRUP UDCUP PO PRN ×3 (00:16→16:19)
[2016-11-10] MEDS: HEPARIN SODIUM,PORCINE 5,000 UNITS/ML VIAL SQ SCH ×3 (00:16→16:19)
[2016-11-10] MEDS: PIPERACILLIN/TAZO 3.375 GM/D5W 50 ML IV SCH ×3 (01:09→14:50)
[2016-11-10 04:30] VITALS: BP 113/70
[2016-11-10 06:54] LABS: BASOPHILS % (AUTO) 0.3 % (0.0-2.0); EOSINOPHILS % (AUTO) 6.8 % (1.0-6.0); HEMATOCRIT 31.6 % (36-46); LYMPHOCYTES % (AUTO) 25.7 % (22.0-44.0); MEAN CORPUSCULAR HEMOGLOBIN 27.4 pg (26.0-34.0); MEAN CORPUSCULAR HGB CONC 31.5 G/dL (31.0-37.0); MEAN CORPUSCULAR VOLUME 87 fL (80-100); MONOCYTES # (AUTO) 0.4 K/uL (0.1-1.0); MONOCYTES % (AUTO) 9.2 % (2.0-9.0); NEUTROPHILS # (AUTO) 2.3 K/uL (1.8-7.7); PLATELET COUNT (AUTO) 175 K/uL (150-450); RED BLOOD CELL COUNT(AUTO) 3.65 MIL/uL (4.00-5.20); RED CELL DISTRIBUTION WIDTH 17.3 % (11.5-14.5)
[2016-11-10 07:20] LABS: RBC MORPHOLOGY COMMENT ABNORMAL RBC MORPH
[2016-11-10 07:27] LABS: ALANINE AMINOTRANSFERASE 26 U/L (12-78); ALBUMIN 2.3 g/dL (3.4-5.0); ANION GAP 5 mmol/L (8-16); ASPARTATE AMINOTRANSFERASE 17 U/L (15-37); BILIRUBIN,TOTAL 0.3 mg/dL (0.1-1.0); CALCIUM, TOTAL 8.5 mg/dL (8.8-10.5); CARBON DIOXIDE 31 mmol/L (22-29); CHLORIDE 108 mmol/L (98-107); CREATININE 0.65 mg/dL (0.60-1.30); GLOMERULAR FILTR. RATE CALC > 60 mL/min (>60); POTASSIUM 4.3 mmol/L (3.5-5.1); SODIUM SERUM 144 mmol/L (136-145); TOTAL PROTEIN, SERUM 5.4 g/dL (6.4-8.2); UREA NITROGEN, BLOOD 7 mg/dL (7-18)
[2016-11-10] MEDS: POTASSIUM CHL 20 MEQ/D5-0.45NS 1,000 ML IV SCH (07:49)
[2016-11-10] MEDS: DOCUSATE SODIUM 100 MG CAPSULE PO SCH (08:38)
[2016-11-10] MEDS: PANTOPRAZOLE SODIUM 40 MG DR TABLET PO SCH (08:38)
[2016-11-10] MEDS: DIVALPROEX SODIUM 250 MG DR TABLET PO SCH ×2 (08:38→16:21)
[2016-11-10] MEDS: ASPIRIN 81 MG EC TABLET PO SCH (08:39)
[2016-11-10] MEDS: CHOLECALCIFEROL (VIT D3) 1,000 UNITS TABLET PO SCH (08:39)
[2016-11-10] MEDS: RisperiDONE 1 MG TABLET PO SCH (08:39)
[2016-11-10] MEDS: HydrALAZINE HCL 25 MG TABLET PO SCH (08:39)
[2016-11-10] MEDS: LACTULOSE 20 GM/30 ML SOLUTION UDCUP PO SCH ×2 (08:55→16:19)
[2016-11-10 11:31] VITALS: BP 121/76
[2016-11-10 15:19] VITALS: BP 146/75
[2016-11-10] MEDS ORDERED: CEPH500 PO (17:46)
[2016-11-10] MEDS ORDERED: GUAIFDM PO (17:46)
[2016-11-10 19:44] VITALS: BP 130/71
== END 2016-11-10 20:40 | disposition home health service (06) | DRG 720 ==
LOC: EMS 08:43 → 5S 17:15
PROVIDERS: ADMIT Hospitalist; ATTEND Hospitalist
DX: A41.9 Sepsis, unspecified organism (principal); E87.0 Hyperosmolality and hypernatremia; E44.1 Mild protein-calorie malnutrition; G80.0 Spastic quadriplegic cerebral palsy; E55.9 Vitamin D deficiency, unspecified; N39.0 Urinary tract infection, site not specified; E86.0 Dehydration; I10 Essential (primary) hypertension; F79 Unspecified intellectual disabilities; K21.9 Gastro-esophageal reflux disease without esophagitis; M81.0 Age-related osteoporosis without current pathological fracture; D63.8 Anemia in other chronic diseases classified elsewhere; E88.09 Other disorders of plasma-protein metabolism, not elsewhere classified; F31.9 Bipolar disorder, unspecified; Z79.82 Long term (current) use of aspirin; Z79.899 Other long term (current) drug therapy; Z79.1 Long term (current) use of non-steroidal anti-inflammatories (NSAID); Z68.24 Body mass index [BMI] 24.0-24.9, adult
CPT/HCPCS: 51702; 71275; 82805; 82962; 83605; 85379; 87040; 87081; 87086; 87804; 93005; 94640; 96365; 96372; 96375; 99285; J1644; J1650; J2060; J2543; J2930; J3480; J7050

== ENCOUNTER 2017-08-15 09:30 | Emergency (ER) | payer MEDICAID ==
[~2017-08-15] VITALS: Ht 157.5 cm; Wt 45.5 kg
[~2017-08-15 09:30] MED LIST changes: +ACET325T47 PO; +ARIP5TAB8 PO; -ARIP5TAB9 PO; +ASPI-1182 PO; +BISA10SU22 PR; +CALC-26 PO; -CALC-776 PO; -CALC650T4 PO; -CARB200T6 PO; +CEPH500 PO; +ESOM20CA31 PO; -FAMO-136 PO; +FE PR; +GUAIFDM PO; -HYDR25 PO; +HYDR25TA84 PO; +LACT30L PO; +MULT-723 PO; -NIAC500T76 PO; -OLAN5TAB2 PO; +OLAN7.5T2 PO; +OMEG-12 PO; -ROSU20 PO; +VITAD1000 PO
[2017-08-15] MEDS ORDERED: SODIUM CHLORIDE 0.9% 1,000 ML IV ONE (10:15)
[2017-08-15 10:30] LABS: BASOPHILS % (AUTO) 0.1 % (0.0-2.0); EOSINOPHILS % (AUTO) 0.2 % (1.0-6.0); HEMATOCRIT 37.2 % (36-46); HEMOGLOBIN 12.4 g/dL (12.0-16.0); LYMPHOCYTES # (AUTO) 0.9 K/uL (1.0-4.8); LYMPHOCYTES % (AUTO) 7.9 % (22.0-44.0); MEAN CORPUSCULAR HEMOGLOBIN 30.3 pg (26.0-34.0); MEAN CORPUSCULAR HGB CONC 33.2 G/dL (31.0-37.0); MEAN CORPUSCULAR VOLUME 91 fL (80-100); MONOCYTES # (AUTO) 0.3 K/uL (0.1-1.0); MONOCYTES % (AUTO) 2.6 % (2.0-9.0); NEUTROPHILS # (AUTO) 10.4 K/uL (1.8-7.7); NEUTROPHILS % (AUTO) 89.2 % (40.0-70.0); PLATELET COUNT (AUTO) 187 K/uL (150-450); RED BLOOD CELL COUNT(AUTO) 4.08 MIL/uL (4.00-5.20); RED CELL DISTRIBUTION WIDTH 14.5 % (11.5-14.5); WHITE BLOOD COUNT (AUTO) 11.6 K/uL (4.5-11.0)
[2017-08-15 10:31] LABS: RBC MORPHOLOGY COMMENT NORMAL RBC MORPH
[2017-08-15 10:39] LABS: ANION GAP 7 mmol/L (8-16); CALCIUM, TOTAL 9.6 mg/dL (8.8-10.5); CARBON DIOXIDE 33 mmol/L (22-29); CHLORIDE 105 mmol/L (98-107); CREATININE 0.68 mg/dL (0.60-1.30); GLOMERULAR FILTR. RATE CALC > 60 mL/min (>60); POTASSIUM 4.3 mmol/L (3.5-5.1); SODIUM SERUM 145 mmol/L (136-145); UREA NITROGEN, BLOOD 17 mg/dL (7-18)
[2017-08-15 10:45] LABS: ALANINE AMINOTRANSFERASE 62 U/L (12-78); ALBUMIN 3.5 g/dL (3.4-5.0); ASPARTATE AMINOTRANSFERASE 26 U/L (15-37); BILIRUBIN,TOTAL 0.2 mg/dL (0.1-1.0); CREATINE KINASE, TOTAL 27 U/L (26-192); TOTAL PROTEIN, SERUM 6.9 g/dL (6.4-8.2)
[2017-08-15 11:00] LABS: APPEARANCE,URINE CLOUDY (CLEAR); GLUCOSE, URINE (UA) NEGATIVE (NEGATIVE); KETONES,URINE NEGATIVE (NEGATIVE); LEUKOCYTE ESTERASE ,URINE SMALL (NEGATIVE); OCCULT BLOOD,URINE NEGATIVE (NEGATIVE); PH,URINE 7.5 (5.0-8.0); PROTEIN,URINE TRACE (NEGATIVE)
[2017-08-15 11:02] LABS: ADD UA MICROSCOPIC YES
[2017-08-15 11:04] LABS: RBC,URINE 0-2 /HPF (0-2); SQUAMOUS EPITHELIAL CELL,UR Few /LPF (None Seen)
[2017-08-15] MEDS ORDERED: CefTRIAXone 1 GM/DEXTROSE 50 ML IV ONE (11:15)
[2017-08-15 12:00] VITALS: BP 153/82
[2017-09-08] MEDS ORDERED: BENZ0.5T6 PO (20:01)
== END 2017-08-15 12:15 | disposition home or self-care (01) ==
LOC: EMS 09:31
DX: N39.0 Urinary tract infection, site not specified (principal); K21.9 Gastro-esophageal reflux disease without esophagitis; I95.9 Hypotension, unspecified; I10 Essential (primary) hypertension
CPT/HCPCS: 36415; 51701; 71010; 80053; 81001; 82550; 84484; 85025; 87077; 87086; 87186; 93005; 96365; 99285; J0696; J7030